=== PATIENT | male | born 1955 | race Caucasian/White ===

== ENCOUNTER → 2018-01-27 | Outpatient (CLI) | payer MEDICARE ==
--- NOTE | 2018-01-27 09:20 | CT ---
EXAMINATION TYPE: CT cervical spine wo con DATE OF EXAM: 01/27/2018 COMPARISON: NONE HISTORY: cervical pain CT DLP: [address] of the cervical spine was performed with bone and soft tissue window settings submitted . Coronal and sagittal reconstruction is obtained. There is normal alignment and prevertebral soft tissues. I do not see evidence for fracture or sublu xation. C1-2: Narrowing of the anterior atlantoaxial joint space. Chronic Bony fragmentation noted. C2-3: Within normal limits C3-4: Mild posterior degenerative space narrowing. Mild ventral and dorsal spondylosis. No evidence f or disc herniation or central stenosis. Degenerative change of the cervical apophyseal joints resulti ng in mild right foraminal encroachment. C4-5:Mild posterior degenerative space narrowing. Mild ventral and dorsal spondylosis. No evidence fo r disc herniation or central stenosis. Degenerative change of the cervical apophyseal joints resultin g in mild right foraminal encroachment. C5-6: Moderate degenerative disc space narrowing. Ventral and dorsal spondylosis. Mild posterior disc bulge. Right greater than left foraminal encroachment. C6-7:Moderate degenerative disc space narrowing. Ventral and dorsal spondylosis. Mild posterior disc bulge. Right greater than left foraminal encroachment. C7-T1. Within normal limits. IMPRESSION: 1. Multilevel degenerative disc disease.
== END | disposition home or self-care (01) ==
LOC: RADCTMAIN 08:11
PROVIDERS: ATTEND Family Medicine
DX: M50.30 Other cervical disc degeneration, unspecified cervical region (principal)
CPT/HCPCS: 72125

== ENCOUNTER → 2018-11-27 | Outpatient (CLI) | payer MEDICARE ==
--- NOTE | 2018-12-02 10:11 | P.ARTDOP ---
Arterial Doppler LOWER EXTREMITY ARTERIAL DOPPLER: DATE OF SERVICE: 11/27/2018 Reason for study: Left leg pain. Doppler waveforms: Multiphasic bilaterally throughout. Pulse volume recording: Normal configuration. Pressure gradients: None. Ankle-brachial indices: Greater than 1 bilaterally. Toe pressures: [] on the right, [] on the left Impression: Normal study.
== END | disposition home or self-care (01) ==
LOC: RADUSWWP 11-20 13:32
PROVIDERS: ATTEND Family Medicine
DX: Z53.9 Procedure and treatment not carried out, unspecified reason (principal)

== ENCOUNTER 2022-05-30 09:03 | Emergency (ER) | payer MEDICARE ==
[2022-05-30 09:09] VITALS: RESP 18
[2022-05-30] MEDS ORDERED: SODIUM CHLORIDE 0.9% 1,000 ML IV STA (09:15)
[2022-05-30] MEDS ORDERED: HYDROmorphone 0.5 MG/0.5 ML SYRINGE IVP STA (09:15)
[2022-05-30] MEDS ORDERED: ONDANSETRON 4 MG/2 ML VIAL IVP STA (09:15)
--- NOTE | 2022-05-30 09:26 | ED ---
Abdominal Pain HPI - General Chief Complaint: Abdominal Pain Stated Complaint: Abd pain Time Seen by Provider: 05/30/22 09:09 Source: patient, RN notes reviewed Mode of arrival: ambulatory Limitations: no limitations - History of Present Illness Initial Comments: 66-year-old male presents emergency Department chief complaint of left lower quadrant abdominal pain. Patient states has been present for 2 days states that last night cannot sleep because of pain. Patient states it does increase with some movement, coughing. Denies any bulging no prior abdominal surgeries he states he had a colonoscopy 5 years ago which had some small polyps. Denies any change in bowel habits denies any diarrhea, constipation, melena hematochezia. No dysuria no hematuria. Patient denies any nausea vomiting reported fever. - Related Data Home Medications Medication Instructions Recorded Confirmed Temazepam [Restoril] 15 mg PO HS 05/30/22 05/30/22 amLODIPine [Norvasc] 5 mg PO DAILY 05/30/22 05/30/22 Previous Rx's Medication Instructions Recorded Amoxic-Pot Clav 875-125Mg 1 tab PO Q12HR #20 tab 05/30/22 [Augmentin 875-125] Allergies Allergy/AdvReac Type Severity Reaction Status Date / Time codeine Allergy itching/rash/stomach Verified 05/30/22 09:48 cramps BP medication AdvReac syncope Uncoded 05/30/22 09:48 Review of Systems ROS Statement: Those systems with pertinent positive or pertinent negative responses have been documented in the HPI. ROS Other: All systems not noted in ROS Statement are negative. Past Medical History Past Medical History: Hypertension, Osteoarthritis (OA), Skin Disorder Additional Past Medical History / Comment(s): rashes, History of Any Multi-Drug Resistant Organisms: None Reported Past Surgical History: Orthopedic Surgery, Tonsillectomy Additional Past Surgical History / Comment(s): swathi thumb surgery, rt arm fatty tumor removed from axilla, bone spur left foot Past Anesthesia/Blood Transfusion Reactions: No Reported Reaction Past Psychological History: No Psychological Hx Reported Smoking Status: Never smoker Past Alcohol Use History: Occasional Past Drug Use History: Marijuana - Past Family History Father Family Medical History: Cancer General Exam Limitations: no limitations General appearance: alert, in no apparent distress Head exam: Present: atraumatic, normocephalic, normal inspection Eye exam: Present: normal appearance, PERRL, EOMI. Absent: scleral icterus, conjunctival injection, periorbital swelling ENT exam: Present: normal exam, normal oropharynx, mucous membranes moist Neck exam: Present: normal inspection, full ROM. Absent: tenderness, meningismus, lymphadenopathy Respiratory exam: Present: normal lung sounds bilaterally. Absent: respiratory distress, wheezes, rales, rhonchi, stridor Cardiovascular Exam: Present: regular rate, normal rhythm, normal heart sounds. Absent: systolic murmur, diastolic murmur, rubs, gallop, clicks GI/Abdominal exam: Present: soft, tenderness (Left lower quadrant), normal bowel sounds. Absent: distended, guarding, rebound, rigid Back exam: Absent: CVA tenderness (R), CVA tenderness (L) Skin exam: Present: warm, dry, intact, normal color. Absent: rash Course Vital Signs 05/30/22 09:05 Temperature 98.0 F Pulse Rate 95 Respiratory 18 Rate Blood Pressure 158/86 O2 Sat by Pulse 95 Oximetry Medical Decision Making - Medical Decision Making CT shows evidence of acute diverticulitis without evidence of perforation or abscess. Patient discharged on oral antibiotics as he tolerated oral intake pain control. We discussed her liquid diet return parameters. - Lab Data Result diagrams: 05/30/22 09:45 05/30/22 09:45 Lab Results 05/30/22 05/30/22 05/30/22 Range/Units 09:45 09:45 09:45 WBC 10.4 (3.8-10.6) k/uL RBC 5.60 (4.30-5.90) m/uL Hgb 16.9 (13.0-17.5) gm/dL Hct 51.0 (39.0-53.0) % MCV 91.0 (80.0-100.0) fL MCH 30.1 (25.0-35.0) pg MCHC 33.1 (31.0-37.0) g/dL RDW 12.6 (11.5-15.5) % Plt Count 228 (150-450) k/uL MPV 7.2 Neutrophils % 85 % Lymphocytes % 9 % Monocytes % 5 % Eosinophils % 1 % Basophils % 0 % Neutrophils # 8.8 H (1.3-7.7) k/uL Lymphocytes # 0.9 L (1.0-4.8) k/uL Monocytes # 0.5 (0-1.0) k/uL Eosinophils # 0.1 (0-0.7) k/uL Basophils # 0.0 (0-0.2) k/uL Sodium 137 (137-145) mmol/L Potassium 4.2 (3.5-5.1) mmol/L Chloride 102 (98-107) mmol/L Carbon Dioxide 22 (22-30) mmol/L Anion Gap 13 mmol/L BUN 13 (9-20) mg/dL Creatinine 0.85 (0.66-1.25) mg/dL Est GFR (CKD-EPI)AfAm >90 (>60 ml/min/1.73 sqM) Est GFR (CKD-EPI)NonAf 90 (>60 ml/min/1.73 sqM) Glucose 155 H (74-99) mg/dL Plasma Lactic Acid Kee (0.7-2.0) mmol/L Calcium 9.2 (8.4-10.2) mg/dL Total Bilirubin 1.2 (0.2-1.3) mg/dL AST 28 (17-59) U/L ALT 16 (4-49) U/L Alkaline Phosphatase 79 (38-126) U/L Total Protein 7.1 (6.3-8.2) g/dL Albumin 4.4 (3.5-5.0) g/dL Amylase 69 (30-110) U/L Lipase 89 (23-300) U/L Urine Color Yellow Urine Appearance Clear (Clear) Urine pH 6.0 (5.0-8.0) Ur Specific [place] 1.009 (1.001-1.035) Urine Protein Negative (Negative) Urine Glucose (UA) Negative (Negative) Urine Ketones 1+ H (Negative) Urine Blood Trace H (Negative) Urine Nitrite Negative (Negative) Urine Bilirubin Negative (Negative) Urine Urobilinogen <2.0 (<2.0) mg/dL Ur Leukocyte Esterase Negative (Negative) Urine RBC 1 (0-5) /hpf Urine WBC 1 (0-5) /hpf Urine Mucus Rare H (None) /hpf 05/30/22 Range/Units 09:45 WBC (3.8-10.6) k/uL RBC (4.30-5.90) m/uL Hgb (13.0-17.5) gm/dL Hct (39.0-53.0) % MCV (80.0-100.0) fL MCH (25.0-35.0) pg MCHC (31.0-37.0) g/dL RDW (11.5-15.5) % Plt Count (150-450) k/uL MPV Neutrophils % % Lymphocytes % % Monocytes % % Eosinophils % % Basophils % % Neutrophils # (1.3-7.7) k/uL Lymphocytes # (1.0-4.8) k/uL Monocytes # (0-1.0) k/uL Eosinophils # (0-0.7) k/uL Basophils # (0-0.2) k/uL Sodium (137-145) mmol/L Potassium (3.5-5.1) mmol/L Chloride (98-107) mmol/L Carbon Dioxide (22-30) mmol/L Anion Gap mmol/L BUN (9-20) mg/dL Creatinine (0.66-1.25) mg/dL Est GFR (CKD-EPI)AfAm (>60 ml/min/1.73 sqM) Est GFR (CKD-EPI)NonAf (>60 ml/min/1.73 sqM) Glucose (74-99) mg/dL Plasma Lactic Acid Kee 0.9 (0.7-2.0) mmol/L Calcium (8.4-10.2) mg/dL Total Bilirubin (0.2-1.3) mg/dL AST (17-59) U/L ALT (4-49) U/L Alkaline Phosphatase (38-126) U/L Total Protein (6.3-8.2) g/dL Albumin (3.5-5.0) g/dL Amylase (30-110) U/L Lipase (23-300) U/L Urine Color Urine Appearance (Clear) Urine pH (5.0-8.0) Ur Specific [place] (1.001-1.035) Urine Protein (Negative) Urine Glucose (UA) (Negative) Urine Ketones (Negative) Urine Blood (Negative) Urine Nitrite (Negative) Urine Bilirubin (Negative) Urine Urobilinogen (<2.0) mg/dL Ur Leukocyte Esterase (Negative) Urine RBC (0-5) /hpf Urine WBC (0-5) /hpf Urine Mucus (None) /hpf Disposition Clinical Impression: Acute diverticulitis Disposition: HOME SELF-CARE Condition: Stable Instructions (If sedation given, give patient instructions): Diverticulitis (ED), Diverticulitis Diet (ED) Additional Instructions: Please return to the Emergency Department if symptoms worsen or any other concerns. Prescriptions: Amoxic-Pot Clav 875-125Mg [Augmentin 875-125] 1 tab PO Q12HR #20 tab Is patient prescribed a controlled substance at d/c from ED?: No Referrals: Kulwant Mars MD [Primary Care Provider] - 1-2 days Time of Disposition: 12:24
[2022-05-30 09:56] LABS: Basophils % (A) 0 %; Eosinophils # (A) 0.1 k/uL (0-0.7); Eosinophils % (A) 1 %; HGB 16.9 gm/dL (13.0-17.5); Lymphocytes # (A) 0.9 k/uL (1.0-4.8); Lymphocytes % (A) 9 %; MCH 30.1 pg (25.0-35.0); MCHC 33.1 g/dL (31.0-37.0); Mean Platelet Volume 7.2; Monocytes # (A) 0.5 k/uL (0-1.0); Monocytes % (A) 5 %; Neutrophils # (A) 8.8 k/uL (1.3-7.7); Neutrophils % (A) 85 %; Platelet Count 228 k/uL (150-450); RDW 12.6 % (11.5-15.5); WBC 10.4 k/uL (3.8-10.6)
[2022-05-30 09:58] LABS: Appearance,Urine Clear (Clear); Bilirubin,Urine Negative (Negative); Blood,Urine Trace (Negative); Color,Urine Yellow; Glucose,Urine (UA) Negative (Negative); Ketones,Urine 1+ (Negative); Leukocyte Esterase,Urine Negative (Negative); Mucus,Urine Rare /hpf; Nitrite,Urine Negative (Negative); Protein,Urine Negative (Negative); RBC,Urine 1 /hpf (0-5); Specific Gravity,Urine 1.009 (1.001-1.035); Urobilinogen,Urine <2.0 mg/dL (<2.0); WBC,Urine 1 /hpf (0-5)
[2022-05-30 10:13] LABS: ALT 16 U/L (4-49); AST 28 U/L (17-59); African American GFR (CKD) >90 (>60 ml/min/1.73 sqM); Albumin 4.4 g/dL (3.5-5.0); Alkaline Phosphatase 79 U/L (38-126); Amylase 69 U/L (30-110); Anion Gap 13 mmol/L; Blood Urea Nitrogen 13 mg/dL (9-20); Calcium 9.2 mg/dL (8.4-10.2); Carbon Dioxide 22 mmol/L (22-30); Chloride 102 mmol/L (98-107); Glucose 155 mg/dL (74-99); Lipase 89 U/L (23-300); Non-African American GFR(CKD) 90 (>60 ml/min/1.73 sqM); Potassium 4.2 mmol/L (3.5-5.1); Sodium 137 mmol/L (137-145); Total Bilirubin 1.2 mg/dL (0.2-1.3); Total Protein 7.1 g/dL (6.3-8.2)
--- NOTE | 2022-05-30 12:09 | CT ---
EXAMINATION TYPE: CT abdomen pelvis w con DATE OF EXAM: 05/30/2022 COMPARISON: 11/02/2014 HISTORY: 66-year-old male Left sided abdominal pain TECHNIQUE: Contiguous axial scanning of the abdomen and pelvis following administration of 100 ml Iso dolores 300 IV contrast. Delayed images through the kidneys and coronal/sagittal reconstructions perform ed. CT DLP: 1313.9 mGycm Automated exposure control for dose reduction was used. FINDINGS: Heart normal size without pericardial effusion. Some atelectasis and scarring lung bases. Small hiatal hernia. No focal liver lesion. No abnormal gallbladder distention. Portal venous system is patent. No biliary ductal dilatation. Adrenal glands, right kidney, spleen, and pancreas within normal limits. There is a 1.5 cm parapelvic cyst left kidney. No dilated small bowel, free fluid, or free air. Scattered mild stool. There is left-sided colonic diverticulosis. Focal moderate wall thickening and inflammatory fat stranding and tracking edema along the mid to low er descending colon. Additional sigmoid diverticulosis. Bladder urine distended. Prostate gland mildly enlarged at 4.7 cm wide. No abnormal fluid collection in the pelvis or pelvic lymphadenopathy. Bones: Moderate degenerative change of the hips. Degenerative changes bilateral SI joints. Facet arth ropathy mid to lower lumbar spine. DISH in the lower thoracic spine. IMPRESSION: 1. EXAM POSITIVE FOR ACUTE DIVERTICULITIS ALONG THE MID TO LOWER DESCENDING COLON. THERE IS MODERATE ASSOCIATED INFLAMMATION. NO ABSCESS OR FREE AIR. DIRECT VISUALIZATION AFTER SUCCESSFUL TREATMENT. 2. SMALL HIATAL HERNIA AND MILD PROSTATOMEGALY. DISH IN THE LOWER THORACIC SPINE.
[2022-05-30 12:54] VITALS: BP 148/82; PULSE 82; TEMP 98
== END 2022-05-30 12:53 | disposition home or self-care (01) ==
LOC: EC 09:03
DX: K57.32 Diverticulitis of large intestine without perforation or abscess without bleeding (principal); I10 Essential (primary) hypertension; Z88.5 Allergy status to narcotic agent; Z88.8 Allergy status to other drugs, medicaments and biological substances; Z79.899 Other long term (current) drug therapy
CPT/HCPCS: 36415; 80053; 82150; 83605; 83690; 85025; 81001; 74177; 99284; 96374; 96375; 96361; J2405; J1170; Q9967

== ENCOUNTER 2024-04-09 05:55 | Day surgery (SDC) | payer MEDICARE ==
[2024-04-07 13:34] VITALS: BMI 26.9
[2024-04-09] MEDS: IV FLUID CONTINUATION 1,000 ML IV ONE (06:09)
[2024-04-09 06:19] VITALS: RESP 16
[2024-04-09] MEDS: DEXAMETHASONE SOD PHOSPHATE 4 MG/ML 1 ML VIAL IV ONE (06:35)
[2024-04-09] MEDS: ONDANSETRON 4 MG/2 ML VIAL IVP ONE (06:35)
[2024-04-09] MEDS: LACTATED RINGERS 1,000 ML IV SCH (06:36)
[2024-04-09] MEDS: MIDAZOLAM 2 MG/2 ML VIAL IVP ONE (06:52)
[2024-04-09] MEDS ORDERED: MIDAZOLAM 2 MG/2 ML VIAL IV PRN (07:00)
[2024-04-09] MEDS ORDERED: fentaNYL (PF) 50 MCG/ML 2 ML AMP IV PRN (07:00)
[2024-04-09] MEDS ORDERED: GLYCOPYRROLATE 0.2 MG/ML 2 ML VIAL ONE (07:18)
[2024-04-09] MEDS ORDERED: ROPIVACAINE 5 MG/ML 30 ML VIAL ONE (07:18)
[2024-04-09] MEDS ORDERED: DEXAMETHASONE SOD PHOSPHATE 4 MG/ML 1 ML VIAL ONE (07:18)
[2024-04-09] MEDS ORDERED: LIDOCAINE 1% INJ 10MG/ML (20 ML MDV) ONE (07:18)
[2024-04-09] MEDS ORDERED: MIDAZOLAM 2 MG/2 ML VIAL ONE (07:18)
[2024-04-09] MEDS ORDERED: ROCURONIUM 10 MG/ML (5 ML VIAL) IV ONE (07:18)
[2024-04-09] MEDS ORDERED: fentaNYL (PF) 50 MCG/ML 2 ML AMP ONE (07:18)
[2024-04-09] MEDS ORDERED: PROPOFOL 10 MG/ML 20 ML VIAL IV ONE (07:18)
[2024-04-09] MEDS ORDERED: NEOSTIGMINE 1 MG/ML 10 ML VIAL ONE (07:18)
[2024-04-09] MEDS ORDERED: SUCCINYLCHOLINE CHLORIDE 200 MG/10 ML VIAL IV ONE (07:18)
--- NOTE | 2024-04-09 07:39 | P.ANPRN ---
Procedure Note - Anesthesia - Nerve Block Performed Right Popliteal Single Time Out Performed: Yes Date of Procedure: 04/09/24 Procedure Start Time: 06:51 Location of Patient: PreOp Indication: Acute Post-Operative Pain, Requested by Surgeon Sedation Type: Sedate with meaningful contact maintained Preparation: Sterile Prep, Sterile Dressing Position: Supine Catheter: None Needle Types: Facet Needle Gauge: 21 Ultrasound used to visualize needle placement: Yes Ultrasound used to observe medication spread: Yes Injectate: 0.5% Ropivacaine (see comment for volume) (30 ml + decadron 4 mg) Blood Aspirated: No Pain Paresthesia on Injection Noted: No Resistance on Injection: Normal Image Stored and Saved: Yes Events: Uneventful and Well Tolerated
--- NOTE | 2024-04-09 08:51 | P.OP ---
Date of Procedure: 04/09/24 Preoperative Diagnosis: Achilles insertional tendinitis right ankle Postoperative Diagnosis: same Procedure(s) Performed: secondary repair right Achilles tendon Implants: Arthrex MIS Achilles insertional anchor kit Anesthesia: KYMBERLYA Surgeon: Jeovany Pappas Estimated Blood Loss (ml): 3 Pathology: none sent Condition: stable Disposition: PACU Description of Procedure: Prior to the patient being brought to the operating room, anesthesia administered nerve block on the surgical extremity. Once completed, the patient was taken into the operating room. Timeout was taken to confirm correct patient identifiers, correct laterality of surgery, and correct procedure. When all staff in the room were in agreement with the timeout, the patient was induced and placed under general anesthesia. The patient was then placed in the prone position on the operating room table. Appropriate padding was placed beneath the patient's face as well as in the thoracic area. Once anesthesia was satisfied with the patient positioning, a well-padded tourniquet was placed on the thigh. Then the leg was prepped and draped in the usual manner. The leg was exsanguinated and the tourniquet inflated to 250 mmHg. Attention was directed to the posterior aspect of the calcaneus at the Achilles insertion. Utilizing fluoroscopy, the insertion point was marked transversely across the heel. 4 small incisions are made in the 10:00 2:00 5:00 and 7:00 positions. 2 incisions were distal to the insertion and the other to proximal. An elevator was used to create tissue planes tween the skin and Achilles tendon between the 4 incisions. And then deeper dissection was done to the proximal incisions between the Achilles tendon and the calcaneus. A 4 mm bur was then inserted into the more distal incisions. The bur was to irrigation to help prevent damage to the bone. The bur was used to resect the posterior superior aspect of the calcaneus and then advance it to the calcification in the Achilles tendon. Once adequate resection was completed left which was confirmed under fluoroscopy, the bur was removed and then the area was thoroughly irrigated to remove any bony fragments. Through the more distal holes, K wires for the placement anchors were placed into the calcaneus. Over drilling was completed and then the holes were both tapped. Attention then directed to the more proximal holes were drill holes for the combination fiber [place] anchors and speed bridge suture were made. This is done utilizing proper technique, then the anchors were inserted through the crop adjuster and then impacted to proper depth. The suture was deployed and the crop adjuster removed. The suture for the speed bridge which was attached to a needle, was passed through the incision due to the Achilles and out the skin. This was repeated with a working stitch through a separate needle. Then this is done on the opposite side in the same manner. The working stitches for the fiber Jake anchors were then passed medial to lateral through the superficial skin plane utilizing the hook passer. Once the sutures were pulled through the were looped through the pull-through stitch which was then carefully tensioned through the anchor until the stitch was free. Both sutures were passed first before full tightening. Then both sutures were tensioned which tied the tendon for the ripstop back to the calcaneus. The telltale puckering of the skin was noted. The working sutures were then cut and then the needles cut off the speed bridge suture. Utilizing a combination of the hook and a hemostat one stitch was placed through the ipsilateral distal hole and the other through the contralateral distal hole in the central repeated on both sides so that the classic speed bridge construct was achieved. The K wires were removed and then the arms of the suture were placed through the eyelet of the 3.9 mm swivel lock anchor. The crop adjuster was aligned with the drill hole in the calcaneus, and with the suture under full tension, the anchor was inserted and and advanced to proper depth within the calcaneus. The area was palpated to indicate that the Achilles was fully intact and attached to the posterior aspect of the calcaneus. The wounds were thoroughly irrigated with antibiotic saline. Each incision was closed with 3-0 nylon. The incision was covered with a jumpstart dressing and then a bulky dry dressing. The tourniquet was released and capillary refill return to all digits on the left foot. The patient was then placed in a well-padded, well molded plaster posterior mold/sugar tong splint. Ankle was held in neutral position until the splint was fully dried. The patient then rolled onto the transfer table where anesthesia was reversed and was taken recovery with vital signs stable
[2024-04-09 08:56] VITALS: TEMP 97.4
[2024-04-09 09:57] VITALS: BP 152/82; PULSE 73
== END 2024-04-09 10:12 | disposition home or self-care (01) ==
LOC: OR 05:55
PROVIDERS: ATTEND Podiatrist
DX: M76.61 Achilles tendinitis, right leg (principal); G89.18 Other acute postprocedural pain; I10 Essential (primary) hypertension; F17.200 Nicotine dependence, unspecified, uncomplicated; Z79.899 Other long term (current) drug therapy; Z88.5 Allergy status to narcotic agent
CPT/HCPCS: 64445; 27650; C1713; J2250; J0330; J1100; J2710; J0690; J2405; J2001; J3010; J2795; J2704